=== PATIENT | female | born 1985 | race Caucasian/White ===

== ENCOUNTER 2016-09-01 15:13 | Inpatient (IN) | payer OTHER ==
[~2016-09-01] VITALS: Ht 162.6 cm; Wt 99.7 kg
[2016-09-01] MEDS ORDERED: LACTATED RINGER'S 1000ML 1,000 ML IV PRN (15:33)
[2016-09-01] MEDS ORDERED: LACTATED RINGER'S 1000ML 1,000 ML IV SCH ×2 (15:33→22:32)
[2016-09-01] MEDS ORDERED: LACTATED RINGER'S 1000ML 500 ML IV PRN ×2 (15:33→22:40)
[2016-09-01] MEDS ORDERED: OXYTOCIN 30 UNITS/500ML NSS IV PRN (15:45)
[2016-09-01 15:55] LABS: HEMATOCRIT 34.5 % (37-47); MEAN CORPUSCULAR HEMOGLOBIN 28.3 pg (25-34); MEAN CORPUSCULAR HGB CONC 33.3 g/dl (32-36); MEAN PLATELET VOLUME 9.3 fL (7.4-10.4); PLATELET COUNT 196 K/uL (130-400); RED BLOOD COUNT 4.06 M/uL (4.2-5.4); WHITE BLOOD COUNT 11.46 K/uL (4.8-10.8)
[2016-09-01] MEDS ORDERED: PATIENT'S ALLERGY INFO NEEDS ENTERED SCH (16:00)
[2016-09-01] MEDS: AMPICILLIN IV 1 GM in SODIUM CHLOR 0.9% AD-VAN 50ML 50 ML IV SCH (16:35)
[2016-09-01 18:22] VITALS: Ht 162.6 cm; Wt 99.7 kg
[2016-09-01] MEDS ORDERED: PRENTAB26 PO (18:55)
[2016-09-01] MEDS ORDERED: CITRIC ACID/SODIUM CITRATE 15 ML UDC PO ONE (20:15)
[2016-09-01] MEDS ORDERED: CEFAZOLIN IV 3,000 MG in DEXTROSE 5% 50ML 50 ML IV SCH (20:30)
[2016-09-01] MEDS ORDERED: MoRPHine SULFATE PF 1 MG/ML 10 ML AMP/VIAL ONE (21:25)
[2016-09-01] MEDS ORDERED: DC INTRASPINAL MORPHINE SCH (21:40)
--- NOTE | 2016-09-01 21:57 | HISTORY & PHYSICAL EXAMINATION ---
DATE OF ADMISSION: 09/01/2016 CHIEF COMPLAINT: Prolonged rupture of membranes. HISTORY OF PRESENT ILLNESS: The patient is a 30-year-old 1, para 0 at 41 weeks and 2 days gestation who was brought in to labor and delivery for prolonged rupture of membranes. She was attempting a home delivery with her ice hockey coach and has been ruptured since 5:00 a.m. on 08/31/2016. Per patient and ice hockey coach, clear amniotic fluid was noted, has tried stimulating contractions with nipple stimulation, has had occasional contractions, never has been adequate. She was found to be 3 cm this morning, per ice hockey coach and was again 3 cm prior to arrival in the afternoon. Her care has been uncomplicated. She is GBS negative. On arrival, she was found to be 4-5 cm, 60% effaced and minus 2 station. Meconium stained amniotic fluid was noted and heart tones had minimal variability, occasional accelerations and no decelerations were noted. Contractions were irregular. The patient was wanting to begin with antibiotics and Pitocin to augment her labor. At the time of admission, she did not want to proceed with a primary section. PAST MEDICAL HISTORY: The patient had borderline hypertension prior to and during the but never required medications. PAST SURGICAL HISTORY: She had wisdom teeth extraction. SOCIAL HISTORY: The patient denies tobacco, alcohol or drug use. MEDICATIONS: vitamins. ALLERGIES: No known drug allergies. LABORATORIES: Blood type is A positive, group B strep negative, hepatitis B surface antigen negative, RPR nonreactive, and HIV negative. PHYSICAL EXAMINATION: GENERAL: The patient is awake, alert, oriented x3. She is in no acute distress. HEART: Regular rate and rhythm. LUNGS: Clear to auscultation bilaterally. ABDOMEN: Gravid uterus, appropriate for gestational age. Bowel sounds present x4. EXTREMITIES: No clubbing, cyanosis or calf tenderness. VAGINAL EXAM: She is 4-5 cm, 60% effaced and minus 3 station with meconium stained amniotic fluid noted. VITAL SIGNS: Blood pressure is 137/91, respiration rate 14, temperature 98.3. ASSESSMENT AND PLAN: A 30-year-old 1, para 0 at 41 weeks and 2 days gestation who has failed a home delivery and prolonged rupture of membranes for greater than 24 hours. Will be admitted to labor and delivery. Will begin with antibiotics for prolonged rupture of membranes and oxytocin to augment her labor.
[2016-09-01] MEDS ORDERED: EpHEDrine SULFATE 50MG/5ML SYR ONE (22:00)
[2016-09-01] MEDS ORDERED: PHENYLEPHRINE HCL INJ 10 MG/ML VIAL ONE (22:00)
[2016-09-01] MEDS ORDERED: ONDANSETRON INJ 2 MG/ML 2 ML VIAL ONE (22:00)
[2016-09-01] MEDS ORDERED: METOCLOPRAMIDE HCL INJ 5 MG/ML 2 ML VIAL ONE (22:00)
[2016-09-01] MEDS ORDERED: OXYTOCIN INJ 10 UNITS/ML VIAL ONE ×3 (22:00→22:07)
[2016-09-01] MEDS ORDERED: NALOXONE HCL INJ 0.08 MG in SYRINGE 1.8 ML IV PRN (22:40)
[2016-09-01] MEDS ORDERED: SODIUM CHLORIDE 0.9% 1000ML 1,000 ML IV PRN (22:40)
[2016-09-01] MEDS ORDERED: NALOXONE HCL INJ 1 MG in SODIUM CHLORIDE 0.9% 1000ML 1,000 ML IV PRN ×4 (22:40)
[2016-09-01] MEDS ORDERED: EpHEDrine SULFATE INJ 50 MG/ML AMP IV PRN ×2 (22:45)
[2016-09-01] MEDS ORDERED: DiphenhydrAMINE HCL 50 MG/ML VIAL IV PRN (22:45)
[2016-09-01] MEDS ORDERED: HYDROCORTISONE ACETATE 25 MG SUPP PR PRN (22:45)
[2016-09-01] MEDS ORDERED: PHENYLEPHRINE 100MCG/ML 5ML SYR IV PRN (22:45)
[2016-09-01] MEDS ORDERED: SENNA 8.6 MG TAB PO PRN (22:45)
[2016-09-01] MEDS ORDERED: DIPHTHERIA/TETANUS/PERTUSSIS 0.5 ML SYR/VIAL IM. ONE (22:45)
[2016-09-01] MEDS ORDERED: PROMETHAZINE HCL INJ 25 MG in SODIUM CHLORIDE 0.9% 50ML 50 ML IV PRN (22:45)
[2016-09-01] MEDS ORDERED: MoRPHine SULFATE PF 1 MG/ML 10 ML AMP/VIAL EPI PRN (22:45)
[2016-09-01] MEDS ORDERED: MEPERIDINE HCL 25 MG/ML CARP IV PRN ×2 (22:45)
[2016-09-01] MEDS ORDERED: LANOLIN OINT EXT PRN ×2 (22:45)
[2016-09-01] MEDS ORDERED: MAGNESIUM HYDROXIDE SUSP 30 ML UDC PO PRN (22:45)
[2016-09-01] MEDS ORDERED: SUPERCREAM 0.870 % 15GM JAR EXT PRN (22:45)
[2016-09-01] MEDS ORDERED: ATROPINE SULFATE 0.1 MG/ML 5ML SYR IV PRN (22:45)
[2016-09-01] MEDS ORDERED: KETOROLAC TROMETHAMINE 30 MG/ML VIAL IV. PRN ×2 (22:45)
[2016-09-01] MEDS ORDERED: BENZOCAINE 20% AER SPR 82.5 GM CAN EXT PRN (22:45)
[2016-09-01] MEDS ORDERED: NALBUPHINE HCL INJ 10 MG/ML AMP IV PRN (22:45)
[2016-09-01] MEDS ORDERED: ONDANSETRON INJ 2 MG/ML 2 ML VIAL IV PRN ×2 (22:45)
[2016-09-01] MEDS ORDERED: NALOXONE HCL 0.4 MG/1 ML VIAL/CARP IV PRN (22:45)
[2016-09-01] MEDS ORDERED: NO NARCOTICS OR SEDATIVES SCH (22:45)
[2016-09-01] MEDS ORDERED: PROMETHAZINE HCL INJ 12.5 MG in SODIUM CHLORIDE 0.9% 50ML 50 ML IV PRN (22:45)
--- NOTE | 2016-09-01 22:54 | [facility] Post Operative Brief Note ---
Immediate Operative Summary Operative Date September 01, 2016. Pre-Operative Diagnosis IUP @ 41.2 weeks, Prolonged Rupture of Membranes, Failure to Progress, Failed home delivery Post-Operative Diagnosis Same Procedure(s) Performed Primary Low Transverse Section Surgeon Dr. Olivarez Spot Cleaner Surgeon(s) Dr. Garcia Estimated Blood Loss 700 Findings Patient delivered a viable Female infant in the vertex position via Primary section at 2157 on 09/01/16 weighing 9# 3oz with APGARs of 7 at 1 minute and 8 at 5 minutes. Cord blood obtained. An intact placenta with a 3 VC delivered and sent to pathology. Normal uterus and bilateral tubes and ovaries noted. Patient tolerated the surgery well. Fluids (cc crystalloids) 1000 Specimens Placenta Cord Blood Drains Silverman To gravity Anesthesia Spinal Complication(s) None Disposition L&D
--- NOTE | 2016-09-01 23:39 | Anesthesiology Progress Note ---
Anesthesia Post Op Note Date & Time September 01, 2016 at 23:39 Notes Mental Status: alert / awake / arousable, participated in evaluation Pt Amnestic to Procedure: Yes Nausea / Vomiting: adequately controlled Pain: adequately controlled Airway Patency, RR, SpO2: stable & adequate BP & HR: stable & adequate Hydration State: stable & adequate Anesthetic Complications: no major complications apparent
[2016-09-02] VITALS (17 sets, daily range): BP systolic 118–135; BP diastolic 73–86; PULSE 83–119; TEMP 36.7–37.2; O2SAT 96–100
[2016-09-02] MEDS: AMPICILLIN IV 1 GM in SODIUM CHLOR 0.9% AD-VAN 50ML 50 ML IV SCH (00:03)
--- NOTE | 2016-09-02 00:17 | OPERATIVE REPORT ---
DATE OF OPERATION: 09/01/2016 PREOPERATIVE DIAGNOSES: 1. Intrauterine at 41 weeks and 2 days gestation. 2. Prolonged rupture of membranes. 3. Failure to progress. 4. Failed home delivery. POSTOPERATIVE DIAGNOSES: Same. OPERATIVE PROCEDURE: Primary low transverse section. SURGEON: Dr. Olivarez. GRINDING WHEEL FACER: Dr. Garcia. ANESTHESIA: Spinal. ESTIMATED BLOOD LOSS: 700 mL IV FLUIDS: 1000 mL crystalloids. URINE OUTPUT: 100 mL clear yellow urine. SPECIMENS: Placenta with 3-vessel cord and cord blood. DRAINS: Silverman to gravity. COMPLICATIONS: None. DISPOSITION: To labor and delivery. OPERATIVE FINDINGS: The patient delivered a viable female infant in the vertex position via primary section at 2157 on 09/01/2016, weighing 9 pounds 3 ounces with Apgars of 7 at 1 minute and 8 at 5 minutes. Please see crocodile farmer's notes for further baby assessment. Cord blood was then obtained. Intact placenta with 3-vessel cord delivered and sent to pathology. Normal uterus and bilateral tubes and ovaries were noted. The patient tolerated the surgery well and was sent to recovery with stable vital signs. INDICATIONS FOR PROCEDURE: The patient is a 30-year-old 1, para 0, at 41 weeks and 2 days gestation, who had spontaneous rupture of membranes at home at 5:00 a.m. on 08/31/2016. She was seeing a box spinner and was having a trial of home delivery. Despite prolonged labor, she made it no further than 3 cm at home. Therefore, the box spinner sent her to labor and delivery for further management. On arrival, she was found to be 4-5 cm, 60% effaced and -2 station. heart tones were category 1. Oxytocin was begun and ampicillin was also begun for prolonged rupture of membranes, per patient's request. She did not want to proceed with a primary section at the time of arrival. Despite adequate contractions with Pitocin, she failed to reach further than 4-5 cm, 60% effaced and -2 station. Therefore, the patient wanted to proceed with a primary section, secondary to failure to progress and prolonged rupture of membranes. The risks, benefits and alternatives were discussed with the patient and informed consent was obtained. OPERATIVE PROCEDURE IN DETAIL: The patient was taken to the operating room, where spinal anesthesia was administered. She was immediately placed in a dorsal supine position with a left lateral tilt and was prepped and draped in a manner appropriate for the procedure. Once anesthesia was found to be adequate, a Pfannenstiel skin incision was made 2 fingerbreadths above the pubic symphysis and was carried down through to a layer of the rectus fascia. Fascia was nicked in the midline and extended bilaterally with curved Smalls scissors. The superior aspect of the fascial incision was grasped with Peggy clamps, elevated, and the rectus muscles were dissected off with the use of the electrocautery and curved Smalls scissors. Likewise, the inferior aspect of the fascial incision was grasped with Peggy clamps, elevated, and the rectus muscles were dissected off with the use of the curved Smalls scissors. The rectus muscles were in midline. The peritoneum was grasped with hemostats x2 and entered with Metzenbaum scissors. The peritoneal incision was then extended cephalocaudally with gentle traction. The bladder blade was then placed within the abdomen. The vesicouterine peritoneum was identified and a bladder flap was created with the Metzenbaum scissors and digital traction. The bladder flap was reincorporated beneath the Austin blade. A transverse incision was then made on the uterus and extended bilaterally with digital traction. The head was then identified and delivered through the incision along with the rest of the body. Baby was bulb suctioned at delivery. Cord was clamped x2 and cut. Baby was handed to an awaiting crocodile farmer for further evaluation and management. Please see crocodile farmer's notes for further baby assessment. Cord blood was then obtained and an intact placenta with 3-vessel cord was delivered through the incision, manually, and sent to pathology. The uterus was then exteriorized and wrapped in a moist laparotomy sponge. Oxytocin infusion was then begun. The uterus and incision were cleared of any blood clots and debris. The incision was then grasped with ring forceps at 4 quadrants and was closed with 0 Vicryl suture in a continuous locking fashion. A second 0 Vicryl suture was used in an imbricating fashion to ensure hemostasis. Any residual bleeding was suture ligated with 0 Vicryl suture in a [id number] interrupted fashion. Excellent hemostasis was noted at the uterine incision. The posterior cul-de-sac was then irrigated with warm saline solution. The uterus was then placed back within its normal anatomic position within the abdomen. The anterior cul-de-sac was then irrigated with warm saline solution. The uterine incision was noted to be hemostatic. The bladder flap was reapproximated to the lower uterine segment with 3-0 Vicryl suture in continuous running fashion. Seprafilm was placed over the uterine incision along the fundus of the uterus. All instruments were then removed from the abdomen. The rectus fascia was then reapproximated with 0 Vicryl suture in continuous running fashion. The subcutaneous tissue was reapproximated with 2-0 Vicryl suture in an interrupted fashion. Skin was then closed with farzana. Excellent hemostasis was noted through all tissue layers. All sponge and instrument counts were found to be correct x2. The patient tolerated the surgery well and was sent to recovery with stable vital signs. I attest to the content of the Intraoperative Record and any orders documented therein. Any exceptio ns are noted below.
[2016-09-02] MEDS: OXYTOCIN INJ 30 UNITS in LACTATED RINGER'S 1000ML 1,000 ML IV SCH ×2 (00:27→12:22)
[2016-09-02 06:40] LABS: COMPLETE YES; EOS % 0.1 %; HEMATOCRIT 33.1 % (37-47); IG% 0.2 %; LYMPH % 13.1 %; MEAN CORPUSCULAR HEMOGLOBIN 28.1 pg (25-34); MEAN CORPUSCULAR HGB CONC 32.6 g/dl (32-36); MEAN PLATELET VOLUME 9.8 fL (7.4-10.4); MONO % 5.3 %; NEUT % 81.3 %; PLATELET COUNT 184 K/uL (130-400); RED BLOOD COUNT 3.85 M/uL (4.2-5.4); WHITE BLOOD COUNT 9.95 K/uL (4.8-10.8)
[2016-09-02] MEDS: PRENATAL VITAMIN TAB PO SCH (07:56)
[2016-09-02] MEDS: SIMETHICONE 80 MG CHEW PO SCH ×4 (07:56→21:36)
[2016-09-02] MEDS: FERROUS SULFATE 325 MG TAB PO SCH (07:57)
[2016-09-02] MEDS: DOCUSATE SODIUM 100 MG CAP PO SCH ×2 (07:57→21:37)
--- NOTE | 2016-09-02 12:21 | Surgery Progress Note ---
Surgery Progress Note Date of Service September 02, 2016. Subjective Post OP Day: 1 + ambulating, + diet, + feeling well, + flatus, + pain controlled Objective Vital Signs: Date Time Temp Pulse Resp B/P Pulse Ox O2 Delivery O2 Flow Rate FiO2 09/02/16 11:40 37.1 100 22 135/86 98 Room Air 09/02/16 08:00 20 96 09/02/16 07:37 37.2 98 20 118/73 96 Room Air 09/02/16 06:00 18 98 09/02/16 05:00 16 100 09/02/16 04:35 99 Room Air 09/02/16 04:35 36.8 84 16 135/79 99 Room Air 09/02/16 04:00 18 99 09/02/16 03:00 16 98 09/02/16 02:00 16 99 09/02/16 01:00 16 100 09/02/16 01:00 100 Room Air 09/02/16 01:00 36.7 83 16 124/80 100 Room Air General Appearance: no apparent distress Abdomen: non tender, non distended, soft Incision(s): clean, dry, intact Laboratory Results: Results Past 24 Hours Test 09/01/16 15:45 09/02/16 06:08 Range/Units White Blood Count 11.46 9.95 4.8-10.8 K/uL Red Blood Count 4.06 3.85 4.2-5.4 M/uL Hemoglobin 11.5 10.8 12.0-16.0 g/dL Hematocrit 34.5 33.1 37-47 % Mean Corpuscular Volume 85.0 86.0 80-100 fL Mean Corpuscular Hemoglobin 28.3 28.1 25-34 pg Mean Corpuscular Hemoglobin Concent 33.3 32.6 32-36 g/dl RDW Standard Deviation 45.7 46.6 36.4-46.3 fL RDW Coefficient of Variation 14.7 14.9 11.5-14.5 % Platelet Count 196 184 130-400 K/uL Mean Platelet Volume 9.3 9.8 7.4-10.4 fL Neutrophils (%) (Auto) 81.3 % Lymphocytes (%) (Auto) 13.1 % Monocytes (%) (Auto) 5.3 % Eosinophils (%) (Auto) 0.1 % Basophils (%) (Auto) 0.0 % Neutrophils # (Auto) 8.09 1.4-6.5 K/uL Lymphocytes # (Auto) 1.30 1.2-3.4 K/uL Monocytes # (Auto) 0.53 0.11-0.59 K/uL Eosinophils # (Auto) 0.01 0-0.5 K/uL Basophils # (Auto) 0.00 0-0.2 K/uL Immature Granulocyte % (Auto) 0.2 % Immature Granulocyte # (Auto) 0.02 0.00-0.02 K/uL Assessment & Plan regular diet POD#1 advance care
[2016-09-02] MEDS ORDERED: ZOLPIDEM TARTRATE 5 MG TAB PO PRN (14:00)
[2016-09-02] MEDS ORDERED: OXYCODONE/ACETAMINOPHEN 5-325 TAB PO PRN (14:00)
[2016-09-02] MEDS ORDERED: ONDANSETRON INJ 2 MG/ML 2 ML VIAL IV PRN (14:00)
[2016-09-02] MEDS ORDERED: KETOROLAC TROMETHAMINE 30 MG/ML VIAL IV. PRN (14:00)
[2016-09-02] MEDS: IBUPROFEN 600 MG TAB PO PRN ×2 (15:12→21:36)
[2016-09-02] MEDS: OXYCODONE/ACETAMINOPHEN 5-325 TAB PO PRN ×2 (15:12→15:21)
[2016-09-02] MEDS ORDERED: BISACODYL 5 MG TABEC PO ONE (22:00)
[2016-09-03 00:20] VITALS: BP 126/76; PULSE 82; TEMP 36.7; O2SAT 97
[2016-09-03 00:30] VITALS: BP 137/88; PULSE 90; TEMP 37.2; O2SAT 95
[2016-09-03] MEDS: OXYCODONE/ACETAMINOPHEN 5-325 TAB PO PRN ×4 (00:41→18:50)
[2016-09-03 06:28] LABS: HEMATOCRIT 29.2 % (37-47)
[2016-09-03] MEDS: DOCUSATE SODIUM 100 MG CAP PO SCH ×2 (07:30→19:34)
[2016-09-03] MEDS: PRENATAL VITAMIN TAB PO SCH (07:30)
[2016-09-03] MEDS: SIMETHICONE 80 MG CHEW PO SCH ×4 (07:30→19:34)
[2016-09-03] MEDS: FERROUS SULFATE 325 MG TAB PO SCH (07:30)
[2016-09-03] MEDS: IBUPROFEN 600 MG TAB PO PRN ×3 (07:31→17:45)
--- NOTE | 2016-09-03 07:40 | OB/GYN Progress Note ---
ASSESSMENT NURSE PRACTITIONER Progress Note Date of Service: September 03, 2016. Patient is seen and examined. She feels well, no complaints. Pain is under control with oral meds. Ambulating without dizziness Voiding without difficulty Tolerating regular diet with out N&V Flatus + BM NEG Bleeding is minimal No fever/ chills/ CP/ SOB/ N&V/ Leg pain Breast feeding without problems Date Time Temp Pulse Resp B/P Pulse Ox O2 Delivery O2 Flow Rate FiO2 09/03/16 00:30 37.2 90 18 137/88 95 Room Air 09/03/16 00:30 95 Room Air 09/02/16 21:30 36.9 88 18 121/82 96 Room Air 09/02/16 15:20 36.8 119 18 129/77 Room Air 09/02/16 14:00 18 100 09/02/16 13:00 18 100 09/02/16 12:00 20 100 09/02/16 11:40 37.1 100 22 135/86 98 Room Air 09/02/16 09:00 20 98 09/02/16 08:00 20 96 Last 24 Hours Test 09/03/16 06:16 Hemoglobin 9.7 g/dL Hematocrit 29.2 % PE: General: Alert, orientedx3, NAD CVS: S1S2 RRR Lungs; CTAB Abd: soft, NT, fundus firm, below Umbilicus Incision: Clean, dry, intact Perineum intact, Lochia rubra minimal Ext; NT, no edema AP: 30 yo s/p C Section, pod# 2 VSS Afebrile doing well Continue routine postop care Encourage ambulation, PO intake All questions were answered D/C home tomorrow
[2016-09-03 08:00] VITALS: BP 139/92; PULSE 88; TEMP 37.1
[2016-09-03 14:50] VITALS: BP 136/79; PULSE 101; TEMP 37.1; O2SAT 96
[2016-09-03] MEDS ORDERED: BISACODYL 10 MG SUPP PR PRN (22:45)
[2016-09-04 00:20] VITALS: BP 126/76; PULSE 82; TEMP 36.7; O2SAT 97
[2016-09-04] MEDS: IBUPROFEN 600 MG TAB PO PRN ×2 (04:17→08:23)
[2016-09-04] MEDS: OXYCODONE/ACETAMINOPHEN 5-325 TAB PO PRN ×2 (04:17→08:25)
[2016-09-04 07:20] VITALS: BP 148/90; PULSE 88; TEMP 37; O2SAT 96
[2016-09-04] MEDS: SIMETHICONE 80 MG CHEW PO SCH (08:21)
[2016-09-04] MEDS: FERROUS SULFATE 325 MG TAB PO SCH (08:23)
[2016-09-04] MEDS: PRENATAL VITAMIN TAB PO SCH (08:23)
[2016-09-04] MEDS: DOCUSATE SODIUM 100 MG CAP PO SCH (08:23)
[2016-09-04] MEDS ORDERED: MTR600X PO (10:56)
[2016-09-04] MEDS ORDERED: OXYC-57 PO (10:56)
--- NOTE | 2016-09-04 10:57 | Discharge Instructions ---
Discharge Instructions Date of Service September 04, 2016. Admission Reason for Admission: Prolonged Rupture Discharge Discharge Diagnosis / Problem: primary section Discharge Goals Goal(s): Routine recovery after Activity Recommendations Activity Limitations: per Instructions/Follow-up section . Instructions / Follow-Up Instructions / Follow-Up ACTIVITY RECOMMENDATIONS: * Gradual return to full activity over the next 2-3 weeks. * No lifting - nothing heavier than baby over the next 2-3 weeks. * Do not engage in vigorous exercise, sexual activity or sports until cleared by your physician. * Do not drive or operate any motorized equipment until cleared by your physician. * You may shower/bathe daily. BREAST CARE: If you are not breast feeding: * Wear a supportive bra 24 hours a day for one to two weeks. * Avoid stimulating your breasts and nipples as much as possible during the first few weeks after delivery. * When taking a shower, have the warm water hit your back, not breasts. * When your breasts feel full, apply ice packs. Usually three to four times a day helps ease the discomfort. * Take a mild pain medication (Tylenol/Motrin) when you are uncomfortable. If breast feeding: * Use breast milk to lubricate nipples. Lansinoh cream may be used for sore nipples. You do not need to remove cream prior to breast feeding. If using a different brand of cream, check the label for directions regarding removal of cream prior to nursing. * Wear a supportive bra. * If having problems with breasts or breast feeding, call a lean process deployment consultant or your health care provider. OVER THE COUNTER MEDICATION: * For discomfort or pain, you may use Acetaminophen (Tylenol), Ibuprofen (Advil ), or Naproxen (Aleve) following the package directions. * For constipation you may use Colace following the package directions. SPECIAL CARE INSTRUCTIONS: When you are discharged from the hospital, it is important for you to follow the instructions listed below: * During the first week at home, you should be able to care for yourself and your baby. In addition, the usual light household activities are encouraged. * Limit your activities to the way you feel. Do not try to clean the house or move furniture. Be sensible. * If you actively engage in sports and have done so up until the time of your delivery, you may resume these activities as soon as you feel able. This may take up to one month or even longer. Use good judgment. * Continue to take your vitamins for at least six weeks after the of your baby. * Your diet need not be limited unless you were on a special diet before your delivery. Breast-feeding mothers need around 2500 calories per day and at least 64-80 ounces of fluid per day (8 to 10 glasses). * You should eat foods from the four major food groups. Crash diets or fad diets are to be avoided. Eating lean meats, fresh fruits and vegetables, low-fat dairy products, high fiber foods and a regular exercise program, will help you get back to your pre- weight without putting your health at risk. * Constipation is sometimes a problem after delivery. Take a mild laxative as needed. If breast feeding, Milk of Magnesia is acceptable to use. You may use a suppository or Fleets enema if no episiotomy. * A daily shower or tub bath is suggested. Be sure to thoroughly and gently dry the perineum. * A bloody vaginal discharge will usually continue until around four weeks post . A small amount of bleeding may continue for as long as six weeks. Vaginal discharge changes from the bright red bleeding after delivery to pink then brownish and finally yellowish-pink before becoming white and disappearing. * Bleeding may increase with activity. Your first period may come in 4-8 weeks. If you are breast feeding, your period may be delayed even longer. * [place] (sex) can begin whenever both you and your partner feel comfortable and do not have any form of genital infection. It is recommended that you wait at least six weeks for internal and external healing to occur. If you have questions, please talk to your health care practitioner. A condom should be used to prevent infection and . * Foreplay, gentle intercourse and lubrication is very important the first several times to prevent pain. A water-based lubricant such as K-Y jelly or Astroglide may be used. * Tampons and/or Douching should be avoided until after six weeks check-up. * If you have RH negative blood and your baby is RH positive, you will receive RHOGAM by injection prior to discharge. The nurse will give you a card to keep with you that has the date and place that you received RHOGAM after delivery. * During your care, you had a Rubella screen done to check for the presence of rubella antibodies in your blood. If your test was negative, you will receive a Rubella vaccine prior to discharge. This vaccine may cause a fever, soreness at the injection site and flu-like symptoms. If these symptoms persist, notify your health care practitioner. is not advised for three months after a Rubella vaccine. * Verbalizes understanding of car seat law as reviewed with patient nursing. * Car Seat hand-out given and reviewed with patient by nursing. * Shaken baby information reviewed with patient by nursing. Call you doctor if: * Heavy bleeding (saturating several pads an hour) or passing clots the size of your fist. * A fever >101 degrees F (38.3 degrees C) on two occasions four hours apart and /or chills. * Unusual pain in the pelvic or vaginal areas. Pain should improve each day . * Call the doctor for any increased redness, drainage or swelling around the incision and any pain unrelieved by prescribed pain medication. * Any signs or symptoms of phlebitis (possible blood clots forming in the veins ): leg pain, warm, red or swollen area on leg. * "Baby Blues" lasting longer than two weeks. If you have any questions or concerns, call your health care practitioner at . FOLLOW-UP VISIT: * Incision check (staple removal) in 1 week. Please call doctor's office at to set up appointment. * Please call the office at to schedule a 6 week examination. It is important you keep this appointment. * It is important for you to make arrangements for either yearly or twice yearly check-ups thereafter. Current Hospital Diet Patient's current hospital diet: Regular OB Diet Discharge Diet Recommended Diet: Regular OB Diet Procedures Procedures Performed: PRIMARY CAESAREAN SECTION Pending Studies Studies pending at discharge: no Medical Emergencies . Who to Call and When: Medical Emergencies: If at any time you feel your situation is an emergency, please call [phone] immediately. . Non-Emergent Contact Non-Emergency issues call your: Primary Care Provider, Pin Drafter Call Non-Emergent contact if: you have a fever, your pain is not controlled, wound has increased drainage, wound has increased redness, wound has increased pain . . "Provider Documentation" section prepared by Justin Olivarez. . VTE Core Measure Inpt VTE Proph given/why not?: Treatment not indicated
[2016-09-04 13:00] VITALS: BP_DIAS 90; PULSE 88; TEMP 37
--- NOTE | 2016-09-14 19:27 | Discharge Summary ---
Discharge Summary Date of Service September 14, 2016. Discharge Summary Admission Date: September 01, 2016 at 15:35 Discharge Date: September 04, 2016 Discharge Disposition: Home Principal Diagnosis: 1. Intrauterine at 41 weeks and 2 days gestation. 2. Prolonged rupture of membranes. 3. Failure to progress. 4. Failed home delivery. Procedures: Primary Low Transverse Section Medication Reconciliation New Medications: Ibuprofen (Ibuprofen) 600 Mg Tab 600 MG PO Q4H PRN for Pain, DUQUE, Cramping, or Fever, #30 TAB Oxycodone/Acetaminophen 5MG/325MG (Percocet 5MG/325MG) Tab 1 TAB PO Q4H PRN for Pain - Pain Scale 1-5, #30 TAB PAIN Continued Medications: Multivit/Min/Iron/Fol Ac/Pren ( Vitamin) Tab 1 TAB PO DAILY, TAB Admission Information HPI (per Admitting provider): HISTORY OF PRESENT ILLNESS: The patient is a 30-year-old 1, para 0 at 41 weeks and 2 days gestation who was brought in to labor and delivery for prolonged rupture of membranes. She was attempting a home delivery with her balance wheel arm burnisher and has been ruptured since 5:00 a.m. on 08/31/2016. Per patient and balance wheel arm burnisher, clear amniotic fluid was noted, has tried stimulating contractions with nipple stimulation, has had occasional contractions, never has been adequate. She was found to be 3 cm this morning, per balance wheel arm burnisher and was again 3 cm prior to arrival in the afternoon. Her care has been uncomplicated. She is GBS negative. On arrival, she was found to be 4-5 cm, 60% effaced and minus 2 station. Meconium stained amniotic fluid was noted and heart tones had minimal variability, occasional accelerations and no decelerations were noted. Contractions were irregular. The patient was wanting to begin with antibiotics and Pitocin to augment her labor. At the time of admission, she did not want to proceed with a primary section. Physical Exam (per Admitting): PHYSICAL EXAMINATION: GENERAL: The patient is awake, alert, oriented x3. She is in no acute distress. HEART: Regular rate and rhythm. LUNGS: Clear to auscultation bilaterally. ABDOMEN: Gravid uterus, appropriate for gestational age. Bowel sounds present x4. EXTREMITIES: No clubbing, cyanosis or calf tenderness. VAGINAL EXAM: She is 4-5 cm, 60% effaced and minus 3 station with meconium stained amniotic fluid noted. VITAL SIGNS: Blood pressure is 137/91, respiration rate 14, temperature 98.3. Hospital Course Patient underwent a primary section on day of admission without complications. Her postop recovery was uneventful. Her tracy catheter and incision dressing were removed on POD # 1. Her diet and activity were advanced as tolerated. Her Hgb remained stable and bleeding minimal. Incision was clean, dry and intact. She was discharged home on POD # 3 with discharge instructions. Total time spent on discharge = 30 mins This includes examination of the patient, discharge planning, medication reconciliation, and communication with other providers. Discharge Instructions ACTIVITY RECOMMENDATIONS: * Gradual return to full activity over the next 2-3 weeks. * No lifting - nothing heavier than baby over the next 2-3 weeks. * Do not engage in vigorous exercise, sexual activity or sports until cleared by your physician. * Do not drive or operate any motorized equipment until cleared by your physician. * You may shower/bathe daily. BREAST CARE: If you are not breast feeding: * Wear a supportive bra 24 hours a day for one to two weeks. * Avoid stimulating your breasts and nipples as much as possible during the first few weeks after delivery. * When taking a shower, have the warm water hit your back, not breasts. * When your breasts feel full, apply ice packs. Usually three to four times a day helps ease the discomfort. * Take a mild pain medication (Tylenol/Motrin) when you are uncomfortable. If breast feeding: * Use breast milk to lubricate nipples. Lansinoh cream may be used for sore nipples. You do not need to remove cream prior to breast feeding. If using a different brand of cream, check the label for directions regarding removal of cream prior to nursing. * Wear a supportive bra. * If having problems with breasts or breast feeding, call a project management consultant or your health care provider. OVER THE COUNTER MEDICATION: * For discomfort or pain, you may use Acetaminophen (Tylenol), Ibuprofen (Advil ), or Naproxen (Aleve) following the package directions. * For constipation you may use Colace following the package directions. SPECIAL CARE INSTRUCTIONS: When you are discharged from the hospital, it is important for you to follow the instructions listed below: * During the first week at home, you should be able to care for yourself and your baby. In addition, the usual light household activities are encouraged. * Limit your activities to the way you feel. Do not try to clean the house or move furniture. Be sensible. * If you actively engage in sports and have done so up until the time of your delivery, you may resume these activities as soon as you feel able. This may take up to one month or even longer. Use good judgment. * Continue to take your vitamins for at least six weeks after the of your baby. * Your diet need not be limited unless you were on a special diet before your delivery. Breast-feeding mothers need around 2500 calories per day and at least 64-80 ounces of fluid per day (8 to 10 glasses). * You should eat foods from the four major food groups. Crash diets or fad diets are to be avoided. Eating lean meats, fresh fruits and vegetables, low-fat dairy products, high fiber foods and a regular exercise program, will help you get back to your pre- weight without putting your health at risk. * Constipation is sometimes a problem after delivery. Take a mild laxative as needed. If breast feeding, Milk of Magnesia is acceptable to use. You may use a suppository or Fleets enema if no episiotomy. * A daily shower or tub bath is suggested. Be sure to thoroughly and gently dry the perineum. * A bloody vaginal discharge will usually continue until around four weeks post . A small amount of bleeding may continue for as long as six weeks. Vaginal discharge changes from the bright red bleeding after delivery to pink then brownish and finally yellowish-pink before becoming white and disappearing. * Bleeding may increase with activity. Your first period may come in 4-8 weeks. If you are breast feeding, your period may be delayed even longer. * Bemiss (sex) can begin whenever both you and your partner feel comfortable and do not have any form of genital infection. It is recommended that you wait at least six weeks for internal and external healing to occur. If you have questions, please talk to your health care practitioner. A condom should be used to prevent infection and . * Foreplay, gentle intercourse and lubrication is very important the first several times to prevent pain. A water-based lubricant such as K-Y jelly or Astroglide may be used. * Tampons and/or Douching should be avoided until after six weeks check-up. * If you have RH negative blood and your baby is RH positive, you will receive RHOGAM by injection prior to discharge. The nurse will give you a card to keep with you that has the date and place that you received RHOGAM after delivery. * During your care, you had a Rubella screen done to check for the presence of rubella antibodies in your blood. If your test was negative, you will receive a Rubella vaccine prior to discharge. This vaccine may cause a fever, soreness at the injection site and flu-like symptoms. If these symptoms persist, notify your health care practitioner. is not advised for three months after a Rubella vaccine. * Verbalizes understanding of car seat law as reviewed with patient nursing. * Car Seat hand-out given and reviewed with patient by nursing. * Shaken baby information reviewed with patient by nursing. Call you doctor if: * Heavy bleeding (saturating several pads an hour) or passing clots the size of your fist. * A fever >101 degrees F (38.3 degrees C) on two occasions four hours apart and /or chills. * Unusual pain in the pelvic or vaginal areas. Pain should improve each day . * Call the doctor for any increased redness, drainage or swelling around the incision and any pain unrelieved by prescribed pain medication. * Any signs or symptoms of phlebitis (possible blood clots forming in the veins ): leg pain, warm, red or swollen area on leg. * "Baby Blues" lasting longer than two weeks. If you have any questions or concerns, call your health care practitioner at . FOLLOW-UP VISIT: * Incision check (staple removal) in 1 week. Please call doctor's office at to set up appointment. * Please call the office at to schedule a 6 week examination. It is important you keep this appointment. * It is important for you to make arrangements for either yearly or twice yearly check-ups thereafter.
== END 2016-09-04 13:30 | disposition home or self-care (01) | DRG 766 ==
LOC: C.LD 15:13 → C.OPB 15:13 → C.LD 15:35 → C.OBG 09-02 01:37
PROVIDERS: ADMIT Obstetrics & Gynecology; ATTEND Obstetrics & Gynecology
PROC: 10D00Z1 Extraction of Products of Conception, Low, Open Approach (ICD-10-PCS; principal; 2016-09-01 20:55)
DX: O42.12 Full-term premature rupture of membranes, onset of labor more than 24 hours following rupture (principal); Z37.0 Single live birth; O76 Abnormality in fetal heart rate and rhythm complicating labor and delivery; O77.0 Labor and delivery complicated by meconium in amniotic fluid; O62.0 Primary inadequate contractions; O66.40 Failed trial of labor, unspecified; O48.0 Post-term pregnancy; O62.2 Other uterine inertia; O99.214 Obesity complicating childbirth; E66.9 Obesity, unspecified; Z3A.41 41 weeks gestation of pregnancy; Z68.37 Body mass index [BMI] 37.0-37.9, adult

== ENCOUNTER → 2017-11-14 | Outpatient (CLI) | payer OTHER ==
[~2017-11-14] MED LIST: MTR600X PO; OXYC-57 PO; PRENTAB26 PO
== END | disposition home or self-care (01) ==
LOC: C.LAB 13:40
PROVIDERS: ATTEND Family Medicine
DX: Z13.220 Encounter for screening for lipoid disorders (principal)

== ENCOUNTER 2018-08-31 16:01 | Inpatient (IN) ==
[2018-08-31] MEDS ORDERED: OXYTOCIN 30 UNITS/500 ML BAG IV PRN (16:55)
--- NOTE | 2018-08-31 17:12 | Obstetrical Progress Note ---
Date of Service August 31, 2018 Subjective Admit Note 32 F P1001 at 40.5 weeks admitted in early labor. She is attempting TOLAC and I gave her the risks involved including but not limited to uterine rupture, failure to deliver vaginally and necessitating repeat , bleeding, infection and leg clots. She is aware of the potential risks and is willing to undergo trial of labor. She was supposed to have a growth scan this week and cancelled her appointment not wanting to have this done. On admission her cervix is 5/60/-3/vertex/intact/midposition/soft. GBS is negative. Random blood sugar 110. FHT Cat 1. She is not planning an epidural. EFW 8.5-9lbs. Results & Data Vital Signs (Past 12 Hours) Vital Signs Temp Pulse Resp BP 08/31/18 16:11 85 133/79 08/31/18 16:08 36.8 C 20
[2018-08-31] MEDS: LACTATED RINGER'S 1,000 ML IV PRN ×2 (17:21→22:48)
[2018-08-31 17:25] LABS: Hemoglobin 12.2 g/dL (12.0-16.0); Mean Corpuscular Volume 84.7 fL (80-100); Mean Platelet Volume 9.8 fL (7.4-10.4); Platelet Count 166 K/uL (130-400); RDW Coefficient of Variation 14.3 % (11.5-14.5); Red Blood Count 4.13 M/uL (4.2-5.4)
[2018-08-31 17:33] LABS: Mean Corpuscular Hgb Conc 34.9 g/dL (32-36)
--- NOTE | 2018-08-31 20:50 | History and Physical Report ---
DATE OF ADMISSION: 08/31/2018 REASON FOR ADMISSION: The patient is a 32-year-old female, para 1-0-0-1, who presents at 40 weeks and 5 days with onset of labor approximately at 1:00 a.m. this morning. She presents to the labor room with active contractions. On admission, she was 5 cm, 60%, -3, vertex, soft, anterior intact vertex presentation. Estimated weight estimated to be approximately 8-1/2 to 9 pounds. The patient had prior . She is planning a trial of labor after . She was given informed consent including the risk of including uterine rupture, infection, bleeding, injury to baby, and leg clots among others. She is willing and acceptable of the risks including the possibility that she may go through labor and end up with a . PAST MEDICAL HISTORY: Significant for prior for failure to progress after laboring at home, gestational diabetes on insulin, class 1 obesity. Positive for migraine history, obesity in , previous baby with macrosomia and heterozygous for alpha 1 antitrypsin deficiency. FAMILY HISTORY: Noncontributory. PAST SURGICAL HISTORY: x1 in 2017. SOCIAL HISTORY: Denies smoking, alcohol or drug use. MEDICATIONS: vitamins and insulin ALLERGIES: No known allergies. PHYSICAL EXAMINATION: VITAL SIGNS: Blood pressure 133/79, pulse 85, respirations 20, temperature 36.8. Blood sugar on admission 110. She is A positive. HEENT: Within normal limits. LUNGS: Clear to auscultation. CARDIOVASCULAR: Regular rate and rhythm. ABDOMEN: Soft, gravid. Estimated weight 8-1/2 to 9 pounds. PELVIC: Cervix exam as noted above. EXTREMITIES: Within normal limits. No edema noted, no rash and negative Homans'. NEUROLOGIC: Intact. LABORATORY DATA: The patient is GBS negative. ASSESSMENT AND PLAN: Term with planned trial of labor after . We will monitor continuously. AMARAD
[2018-08-31] MEDS ORDERED: ePHEDrine sulfate 50 MG/ML AMP ONE (21:33)
[2018-08-31] MEDS ORDERED: BUPIVACAINE 0.25% 30 ML VIAL ONE (21:33)
[2018-08-31] MEDS ORDERED: fentaNYL 2MCG/ML ROPIV 1.25MG/ML 100 ML BAG EPI ONE (21:34)
[2018-08-31] MEDS ORDERED: fentaNYL citrate 100 MCG/2 ML VIAL ONE (21:34)
[2018-08-31] MEDS ORDERED: LACTATED RINGER'S 1,000 ML IV PRN (21:54)
[2018-08-31] MEDS ORDERED: DiphenhydrAMINE HCL 50 MG/ML VIAL IV PRN (21:54)
[2018-08-31] MEDS ORDERED: NALBUPHINE HCL INJ 10 MG/ML AMP IV PRN (21:54)
[2018-08-31] MEDS ORDERED: ONDANSETRON INJ 2 MG/ML 2 ML VIAL IV PRN (21:54)
[2018-08-31] MEDS ORDERED: NALOXONE HCL 1 MG in SODIUM CHLORIDE 0.9% 1000ML 1,000 ML IV PRN (21:54)
[2018-08-31] MEDS ORDERED: ePHEDrine sulfate 50 MG/ML AMP IV PRN (21:54)
[2018-08-31] MEDS ORDERED: fentaNYL 2MCG/ML ROPIV 1.25MG/ML 100 ML BAG EPI PRN (21:54)
[2018-08-31] MEDS ORDERED: NALOXONE HCL 0.4 MG/1 ML VIAL/CARP IV PRN (21:54)
--- NOTE | 2018-08-31 21:56 | Anesthesiology Consultation ---
Date of Service August 31, 2018 Assessment & Plan (1) Encounter for pre-operative examination: Chart Review Chart Review: Patient NOT seen in Pre Admission Testing and Acceptable Risk for Labor Epidural Consults Requested none History Height/Weight Height: 5 ft 4 in Weight: 92.079 kg Allergies Allergy/AdvReac Type Severity Reaction Status Date / Time No Known Allergies Allergy Verified 08/31/18 16:35 Medications Home Medications Medication Instructions Recorded Confirmed Last Taken PNV cmb#95-ferrous fumarate-FA 1 tab PO DAILY 08/31/18 08/31/18 08/29/18 07:30 [] ascorbic acid (vitamin C) [Vitamin 250 mg PO DAILY 08/31/18 08/31/18 08/29/18 07:30 C] insulin NPH isoph U-100 human 34 unit SUBCUT HS 08/31/18 08/31/18 08/31/18 02:00 [Novolin N NPH U-100 Insulin] lactobacillus comb no.10 26,000 mmu cells PO DAILY 08/31/18 08/31/18 08/29/18 07:30 [Probiotic] Active Medications Generic Name Dose Route Start Last Admin Trade Name Freq PRN Reason Stop Dose Admin Lactated Ringer's 1,000 mls @ 125 mls/hr 08/31/18 16:55 08/31/18 21:30 Lr IV 09/02/18 16:54 999 mls/hr .Q8H PRN Infusion L&D Protocol Protocol Past Medical History Medical History Gestational diabetes Insulin controlled Heterozygous alpha 1-antitrypsin deficiency Migraines [place] teeth removed 2003 Exercise / Class Metabolic Activity II 4-5 Yardwork/Stairs/Walk up hill Past Family History Family History Grandfather (Maternal) Cancer Grandmother (Maternal) Cancer Past Surgical History Surgical History Previous section 2016 Past Anesthesia History No Hx of Anesthesia Complications and No Family Hx of Anesthesia Complications History of PONV No Hx of PONV and No Hx of Motion Sickness Social History Smoking Status: Never smoker Do You Dip or Chew Tobacco: No Hx Alcohol Use: No Hx Substance Use: No Physical Exam Vital Signs Last Vital Signs Temp 36.7 C 08/31/18 20:38 Pulse 97 H 08/31/18 20:38 Resp 16 08/31/18 20:38 BP 140/76 08/31/18 20:38 Testing Laboratory Results 08/31/18 17:13 08/31/18 17:13 Blood Type A Positive Antibody Screen NEGATIVE
[2018-09-01] MEDS ORDERED: BENZOCAINE 20% AER SPR 82.5 GM CAN EXT PRN (00:49)
[2018-09-01] MEDS ORDERED: OXYTOCIN 30 UNITS/500 ML BAG IV PRN (00:49)
[2018-09-01] MEDS ORDERED: BISACODYL 10 MG SUPP PR PRN (00:49)
[2018-09-01] MEDS ORDERED: SUPERCREAM 0.870% 15 GM JAR EXT PRN (00:49)
[2018-09-01] MEDS ORDERED: ACETAMINOPHEN 325 MG TAB PO PRN (00:49)
[2018-09-01] MEDS ORDERED: DIPHTHERIA/TETANUS/PERTUSSIS 0.5 ML SYR/VIAL IM ONE (00:49)
[2018-09-01] MEDS ORDERED: MEASLES, MUMPS & RUBELLA VIRUS VIAL SQ ONE (00:49)
[2018-09-01] MEDS ORDERED: HYDROCORTISONE ACETATE 25 MG SUPP PR PRN (00:49)
--- NOTE | 2018-09-01 00:56 | Procedure Note ---
Vaginal Delivery Summary Date of Service September 01, 2018 Vaginal Delivery Summary Delivery Note () live female over intact perineum JAMIE with nuchal cord x1 reduced at delivery with Apgars 6/9 weight pending. Delayed cord clamping followed by cord blood and spontaneous delivery of intact placenta. No tears. EBL 200 ml. Final sponge and needle count are correct. Mom and baby stable.
--- NOTE | 2018-09-01 03:51 | Anesthesia Procedure Note ---
Date of Service September 01, 2018 Anesthesia Post Epidural Note Vital Signs Vital Signs: Temp Pulse Resp BP Pulse Ox 09/01/18 02:55 108 H 130/66 09/01/18 02:40 108 H 124/65 09/01/18 02:25 108 H 18 130/67 09/01/18 02:10 101 H 131/66 09/01/18 01:55 106 H 18 126/67 09/01/18 01:40 108 H 18 119/65 09/01/18 01:25 78 18 115/55 L 09/01/18 01:10 84 18 128/65 09/01/18 00:55 36.6 C 96 H 18 132/69 09/01/18 00:51 105 H 93 09/01/18 00:46 94 H 94 09/01/18 00:41 93 H 94 09/01/18 00:36 92 H 95 09/01/18 00:35 103 H 116/74 09/01/18 00:31 117 H 92 09/01/18 00:26 138 H 92 09/01/18 00:21 95 H 143/83 H 93 09/01/18 00:16 119 H 96 09/01/18 00:12 97 H 129/65 09/01/18 00:11 96 H 97 09/01/18 00:06 109 H 99 09/01/18 00:05 109 H 183/76 H 09/01/18 00:01 92 H 99 09/01/18 00:00 18 08/31/18 23:56 103 H 96 08/31/18 23:51 113 H 96 08/31/18 23:50 92 H 177/82 H 08/31/18 23:46 115 H 96 08/31/18 23:41 108 H 98 08/31/18 23:36 98 H 99 08/31/18 23:35 90 139/65 08/31/18 23:31 94 H 98 08/31/18 23:30 18 08/31/18 23:26 93 H 98 08/31/18 23:21 92 H 139/65 98 08/31/18 23:16 92 H 98 08/31/18 23:11 91 H 99 08/31/18 23:06 85 100 08/31/18 23:05 76 135/63 08/31/18 23:01 79 99 08/31/18 23:00 18 08/31/18 22:56 102 H 100 08/31/18 22:51 89 100 08/31/18 22:49 96 H 136/63 08/31/18 22:46 91 H 100 08/31/18 22:45 104 H 141/65 H 08/31/18 22:41 113 H 100 08/31/18 22:40 36.5 C 18 08/31/18 22:39 111 H 144/67 H 08/31/18 22:37 110 H 145/61 H 08/31/18 22:36 111 H 99 08/31/18 22:32 117 H 136/64 08/31/18 22:31 113 H 100 08/31/18 22:30 120 H 136/64 08/31/18 22:28 106 H 135/61 08/31/18 22:26 128 H 135/60 100 08/31/18 22:24 120 H 144/61 H 08/31/18 22:22 121 H 153/71 H 08/31/18 22:21 125 H 95 08/31/18 22:20 113 H 137/64 08/31/18 22:18 111 H 139/64 08/31/18 22:17 101 H 154/99 H 08/31/18 22:16 104 H 90 08/31/18 22:15 122 H 86 L 08/31/18 22:14 122 H 145/101 H 08/31/18 22:11 115 H 94 08/31/18 22:09 117 H 94 08/31/18 22:06 94 H 96 08/31/18 22:02 111 H 86 L 08/31/18 22:01 107 H 94 08/31/18 20:38 36.7 C 97 H 16 140/76 08/31/18 19:31 81 20 127/63 08/31/18 18:18 82 20 124/60 08/31/18 16:46 36.8 C 85 20 133/79 08/31/18 16:11 85 133/79 08/31/18 16:08 36.8 C 20 Notes Mental Status: alert / awake / arousable and participated in evaluation Patient Amnestic to Procedure: No Nausea / Vomiting: adequately controlled Pain: adequately controlled Airway Patency, RR, SpO2: stable & adequate BP & HR: stable & adequate Hydration State: stable & adequate Neuraxial Anesthesia: was administered and sensory block is resolving Anesthetic Complications: no major complications apparent and Pt Satisfied with anesthetic care Epidural: Removed without complications and With tip intact
[2018-09-01] MEDS: IBUPROFEN 600 MG TAB PO PRN ×4 (04:52→20:11)
[2018-09-01] MEDS: ASCORBIC ACID 500 MG TAB PO SCH (08:45)
[2018-09-01] MEDS: PRENATAL VITAMIN 1 TAB PO SCH (08:45)
[2018-09-01] MEDS: DOCUSATE SODIUM 100 MG CAP PO SCH ×2 (08:45→20:11)
[2018-09-01] MEDS: LACTOBACILLUS ACIDOPHILUS (FLORANEX) TAB PO SCH (08:46)
--- NOTE | 2018-09-01 08:46 | Obstetrical Progress Note ---
Date of Service September 01, 2018 Assessment & Plan (1) normal course: PPD #1 pt doing well anticipate disch tomorrow Subjective Ambulation: ambulating normally Voiding: no voiding problems Passing Gas:: Yes Diet Tolerance:: regular diet Lochia:: Small Feeding Type:: breast feeding Review of Systems All systems reviewed & are unremarkable except as noted in HPI & below Physical Exam Vital Signs (Past 24 Hours) Last Vital Signs Temp 37.3 C 09/01/18 03:20 Pulse 102 H 09/01/18 03:20 Resp 16 09/01/18 03:20 BP 136/77 09/01/18 03:20 Pulse Ox 95 09/01/18 03:20 Constitutional WD/WN, vitals as above well developed and well nourished Eyes PERRL, conjunctivae normal, anicteric sclerae Neck trachea midline, no thyromegaly Respiratory normal respiratory effort, lungs clear to auscultation Auscultation: no crackles, no rales and no wheezes Cardiovascular RRR, no murmur, no edema Gastrointestinal (Abdomen) normal bowel sounds, soft, nontender, no hepatosplenomegaly Uterus is below umbilicus Musculoskeletal no cyanosis or clubbing, extremities motor strength 5/5 Skin no rashes, warm and dry Neurologic patellar DTR's 2+ bilat, sensation intact Psychiatric A+Ox3, euthymic affect Genitourinary normal external appearance
[2018-09-01] MEDS: FERROUS SULFATE 325 MG TAB PO SCH (08:47)
[2018-09-01] MEDS ORDERED: NON-FORMULARY MEDICATION (Pnv Cmb#95-Ferrous Fumarate-Fa [Prenatal] 1 TAB) PO SCH (09:00)
[2018-09-01 21:21] VITALS: O2SAT 98
[2018-09-02 07:09] LABS: Hematocrit (blood only) 29.4 % (37-47); Mean Corpuscular Volume 86.7 fL (80-100); Mean Platelet Volume 9.9 fL (7.4-10.4); Platelet Count 152 K/uL (130-400); RDW Coefficient of Variation 14.8 % (11.5-14.5); Red Blood Count 3.39 M/uL (4.2-5.4); White Blood Count 9.56 K/uL (4.8-10.8)
[2018-09-02 08:31] VITALS: PULSE 82; TEMP 98.1
[2018-09-02] MEDS: IBUPROFEN 600 MG TAB PO PRN (08:56)
[2018-09-02] MEDS: ASCORBIC ACID 500 MG TAB PO SCH (08:56)
[2018-09-02] MEDS: LACTOBACILLUS ACIDOPHILUS (FLORANEX) TAB PO SCH (08:56)
[2018-09-02] MEDS: DOCUSATE SODIUM 100 MG CAP PO SCH (08:56)
[2018-09-02] MEDS: FERROUS SULFATE 325 MG TAB PO SCH (08:56)
[2018-09-02] MEDS: PRENATAL VITAMIN 1 TAB PO SCH (08:57)
--- NOTE | 2018-09-02 10:26 | Obstetrical Progress Note ---
Date of Service September 02, 2018 Subjective doing well passing gas tolerating diet plans to go home Physical Exam Constitutional: WD/WN, vitals as above comfortable Abdomen soft and non- tender fundus firm no edema neg Yessica's for d/c home today Results & Data Vital Signs (Past 12 Hours) Vital Signs Temp Pulse Resp BP BP 09/02/18 08:26 36.7 C 82 16 119/81 09/02/18 04:45 36.8 C 91 H 16 128/79 128/79 09/02/18 00:30 36.9 C 79 16 115/73
[2018-09-02 10:42] VITALS: BP 128/79
[2018-09-02] MEDS ORDERED: BISACODYL 5 MG TABEC PO SCH (20:00)
== END 2018-09-02 11:50 | disposition home or self-care (01) | DRG 807 ==
LOC: OPB 16:01 → 4S1 16:02 → 4S2 09-01 03:28